=== PATIENT | female | born 1965 | race Caucasian/White ===

== ENCOUNTER 2018-02-04 21:02 | Inpatient (IN) | payer OTHER ==
[~2018-02-04] VITALS: Ht 172.7 cm; Wt 54.4 kg
[2018-02-04] MEDS ORDERED: INSULIN (21:38)
[2018-02-04 22:19] LABS: BASOPHILS ABSOLUTE AUTO 0.03 K/mm3 (0.00-0.23); BASOPHILS PERCENT AUTO 1 % (0-2); EOSINOPHILS ABSOLUTE AUTO 0.14 K/mm3 (0.00-0.68); EOSINOPHILS PERCENT AUTO 2 % (0-6); Hematocrit 29.7 % (33.0-51.0); IMMATURE GRAN ABSOLUTE AUTO 0.09 K/mm3 (0.00-0.10); IMMATURE GRAN PERCENT AUTO 2 % (0-1); LYMPHOCYTES ABSOLUTE AUTO 0.92 K/mm3 (0.84-5.20); LYMPHOCYTES PERCENT AUTO 15 % (21-46); MONOCYTES ABSOLUTE AUTO 0.71 K/mm3 (0.16-1.47); MONOCYTES PERCENT AUTO 12 % (4-13); Mean Corpuscular HGB 24.9 pg (26.0-34.0); Mean Corpuscular HGB Conc 30.3 g/dL (31.5-36.5); Mean Corpuscular Volume 82 fL (80-100); Mean Platelet Volume 10.6 fL (9.1-12.4); NEUTROPHILS ABSOLUTE AUTO 4.07 K/mm3 (1.96-9.15); NEUTROPHILS PERCENT AUTO 68 % (41-73); Platelet Count 180 K/mm3 (150-400); Red Blood Cell Count 3.62 M/mm3 (3.80-5.20); White Blood Cell Count 5.96 K/mm3 (4.00-11.30)
[2018-02-04 22:41] LABS: Alanine Aminotransfer (ALT/SGP 110 U/L (12-78); Albumin, Blood 2.5 g/dL (3.4-5.0); Albumin/Globulin Ratio 0.5 (0.8-1.8); Alk Phos 272 U/L (50-136); Anion Gap 11 mmol/L (6-16); Aspartate Aminotrans (AST/SGOT 206 U/L (12-37); Bilirubin, Total 0.5 mg/dL (0.1-1.0); Blood Urea Nitrogen 22 mg/dL (8-24); Bun/Creatinine Ratio 33.8 (12.0-20.0); CO2, Blood 23 mmol/L (21-32); Calcium, Blood 8.9 mg/dL (8.5-10.1); Chloride, Blood 109 mmol/L (98-108); Creatinine, Blood 0.65 mg/dL (0.40-1.00); Ethanol (Alcohol), Blood, Med <3 mg/dL; Glomerular Filtration Rate >60 (60-); Glucose, Blood 92 mg/dL (70-99); Salicylate <1.7 mg/dL (2.8-20.0); Sodium, Blood 143 mmol/L (136-145); Total Protein, Blood 7.5 g/dL (6.4-8.2)
[2018-02-04 22:49] LABS: Acetaminophen, Random <2.0 ug/mL (10.0-30.0)
[2018-02-04 22:58] LABS: Source, Urine Clean Catch
[2018-02-04 23:00] LABS: Bilirubin, Urine Neg (Neg); Blood, Urine 1+ (Neg); Glucose Qualitative, Urine 2+ (Neg); Ketones, Urine Neg (Neg); Leukocyte Esterase, Urine Neg (Neg); Nitrite, Urine Neg (Neg); Protein, Urine 3+ (Neg); Specific Gravity, Urine 1.025 (1.003-1.022); Urobilinogen, Urine NORM (Normal)
[2018-02-04 23:05] LABS: Appearance, Urine Clear (Clear); Color, Urine Yellow (P-Yellow)
[2018-02-04 23:06] LABS: Bacteria Mod /hpf; Red Blood Cells, Urine 0-2 /hpf (0-2); Squamous Epithelial Cells Mod /hpf (Few)
[2018-02-04 23:11] LABS: U Amphetamine Screen DETECTED; U Barbituate Screen Not Detected; U Benzodiazapine Screen Not Detected; U Buprenorphine Screen Not Detected; U Cannabinoids Screen Not Detected; U Cocaine Screen Not Detected; U Methadone Screen Not Detected; U Methamphetamine Screen Not Detected; U Opiates Screen Not Detected; U Oxycodone Screen Not Detected; U Phencyclidine Screen Not Detected; U Propoxyphene Screen Not Detected
[2018-02-05 00:15] LABS: Free Thyroxine 0.23 ng/dL (0.70-1.60)
[2018-02-05 00:36] LABS: Triiodothyronine, Free 0.62 pg/mL (2.18-3.98)
[2018-02-05 03:29] LABS: Hematocrit 32.5 % (33.0-51.0); Hemoglobin 9.8 g/dL (11.5-16.0); Mean Corpuscular HGB 24.6 pg (26.0-34.0); Mean Corpuscular HGB Conc 30.2 g/dL (31.5-36.5); Mean Corpuscular Volume 82 fL (80-100); Mean Platelet Volume 9.9 fL (9.1-12.4); Platelet Count 172 K/mm3 (150-400); RDW Coefficient Variation 22.9 % (11.7-14.2); RDW Standard Deviation 68.2 fL (35.1-46.3); Red Blood Cell Count 3.98 M/mm3 (3.80-5.20); White Blood Cell Count 7.96 K/mm3 (4.00-11.30)
[2018-02-05 03:58] LABS: Alanine Aminotransfer (ALT/SGP 113 U/L (12-78); Albumin, Blood 2.6 g/dL (3.4-5.0); Albumin/Globulin Ratio 0.5 (0.8-1.8); Alk Phos 282 U/L (50-136); Anion Gap 8 mmol/L (6-16); Aspartate Aminotrans (AST/SGOT 212 U/L (12-37); Bilirubin, Total 0.7 mg/dL (0.1-1.0); Blood Urea Nitrogen 19 mg/dL (8-24); Bun/Creatinine Ratio 35.4 (12.0-20.0); CO2, Blood 24 mmol/L (21-32); Calcium, Blood 8.8 mg/dL (8.5-10.1); Chloride, Blood 107 mmol/L (98-108); Creatinine, Blood 0.54 mg/dL (0.40-1.00); Globulin, Blood 5.2 g/dL (2.2-4.0); Glomerular Filtration Rate >60 (60-); Glucose, Blood 33 mg/dL (70-99); Sodium, Blood 139 mmol/L (136-145); Total Protein, Blood 7.8 g/dL (6.4-8.2)
[2018-02-07] MEDS ORDERED: NICO21TP TOP (16:24)
[2018-02-07] MEDS ORDERED: TRAZ100 PO (16:25)
[2018-02-07] MEDS ORDERED: TAMS.4ER PO (16:27)
[2018-02-07] MEDS ORDERED: LEVSOD125 PO (16:29)
[2018-02-07] MEDS ORDERED: FURO20 PO (16:30)
[2018-02-07] MEDS ORDERED: METO25 PO (16:30)
[2018-02-07] MEDS ORDERED: RISP.5 PO (16:31)
[2018-02-07] MEDS ORDERED: PROZAC20 MG PO (16:31)
[2018-02-07] MEDS ORDERED: INSULANPEN SC (16:34)
[2018-02-07] MEDS ORDERED: Humalog100 UNIT/3 SC (16:35)
[2018-02-07] MEDS ORDERED: RIFA550T2 PO (16:37)
[2018-02-07] MEDS ORDERED: Loperamide2 MG PO (16:38)
[2018-02-07] MEDS ORDERED: LORA1 PO (16:39)
[2018-02-07] MEDS ORDERED: OXYC5 PO (16:40)
[2018-02-07] MEDS ORDERED: CHOL10002 PO (16:43)
[2018-02-07] MEDS ORDERED: Ferrous Sulfat325 MG PO (16:43)
[2018-02-07] MEDS ORDERED: MAGOXI400 PO (16:44)
[2018-02-07] MEDS ORDERED: PROAIR RESPICL90 MCG INH (16:46)
[2018-02-07] MEDS ORDERED: GLUCOSE PO (16:49)
[2018-02-08 12:02] LABS: Free Thyroxine 0.76 ng/dL (0.70-1.60)
[2018-02-08 12:03] LABS: Anion Gap 9 mmol/L (6-16); Blood Urea Nitrogen 19 mg/dL (8-24); Bun/Creatinine Ratio 35.1 (12.0-20.0); CO2, Blood 25 mmol/L (21-32); Calcium, Blood 8.1 mg/dL (8.5-10.1); Chloride, Blood 97 mmol/L (98-108); Creatinine, Blood 0.54 mg/dL (0.40-1.00); Glomerular Filtration Rate >60 (60-); Glucose, Blood 498 mg/dL (70-99); Potassium, Blood 4.2 mmol/L (3.5-5.5); Sodium, Blood 131 mmol/L (136-145)
[2018-02-08] MEDS ORDERED: DEX4 GLUCOSE BIT1 GM (12:28)
[2018-02-08] MEDS ORDERED: INSDET100 SC (12:30)
[2018-02-08] MEDS ORDERED: QUET25 PO (12:31)
[2018-02-08] MEDS ORDERED: Seroquel25 MG PO (12:32)
[2018-02-08] MEDS ORDERED: Novolog Fl100 UNIT/1 (12:35)
== END 2018-02-08 14:45 | disposition home or self-care (01) | DRG 917 ==
LOC: ER 21:02 → ICUW 21:03 → EDBD 21:03 → MEDS 21:03 → ICUE 21:03 → MEDS 02-05 00:27 → ICUE 02-05 00:30 → MEDS 02-06 10:00 → ENPENDDIS 02-08 11:00 → MEDS 02-08 14:45
PROVIDERS: Emergency Medicine; Internal Medicine; Internal Medicine Endocrinology, Diabetes & Metabolism
DX: T38.3X1A Poisoning by insulin and oral hypoglycemic [antidiabetic] drugs, accidental (unintentional), initial encounter (principal); G93.41 Metabolic encephalopathy; F31.5 Bipolar disorder, current episode depressed, severe, with psychotic features; E10.649 Type 1 diabetes mellitus with hypoglycemia without coma; E03.8 Other specified hypothyroidism; E86.0 Dehydration; E87.6 Hypokalemia; F31.9 Bipolar disorder, unspecified; F29 Unspecified psychosis not due to a substance or known physiological condition; F41.9 Anxiety disorder, unspecified; I10 Essential (primary) hypertension; R45.1 Restlessness and agitation; F17.210 Nicotine dependence, cigarettes, uncomplicated; Z79.4 Long term (current) use of insulin; Z79.1 Long term (current) use of non-steroidal anti-inflammatories (NSAID)
CPT/HCPCS: 36415; 80048; 80053; 80400; 81001; 81025; 82140; 82533; 82607; 82728; 82746; 82947; 83036; 83540; 83550; 84439; 84443; 84481; 85025; 85027; 87077; 87081; 87086; 87186; 96361; 96374; 96375; 96376; 99285-25; G0480; J0834; J1610; J1650; J1720; J1815; J2060; J7030

== ENCOUNTER 2019-06-15 11:33 | Inpatient (IN) | payer OTHER ==
[~2019-06-15] VITALS: Ht 157.5 cm; Wt 46.3 kg
[~2019-06-15 11:33] MED LIST: CHOL10002 PO; DEX4 GLUCOSE BIT1 GM; FURO20 PO; Ferrous Sulfat325 MG PO; GLUCOSE PO; Humalog100 UNIT/3 SC; INSDET100 SC; INSULANPEN SC; INSULIN; LEVSOD125 PO; LORA1 PO; Loperamide2 MG PO; MAGOXI400 PO; METO25 PO; NICO21TP TOP; Novolog Fl100 UNIT/1; OXYC5 PO; PROAIR RESPICL90 MCG INH; PROZAC20 MG PO; QUET25 PO; RIFA550T2 PO; RISP.5 PO; Seroquel25 MG PO; TAMS.4ER PO; TRAZ100 PO
[2019-06-15 12:59] LABS: Source, Urine Clean Catch
[2019-06-15 13:01] LABS: Appearance, Urine Clear (Clear); Bilirubin, Urine Neg (Neg); Blood, Urine Neg (Neg); Color, Urine Yellow (P-Yellow); Glucose Qualitative, Urine 4+ (Neg); Ketones, Urine Neg (Neg); Leukocyte Esterase, Urine Neg (Neg); Nitrite, Urine Neg (Neg); Protein, Urine 2+ (Neg); Specific Gravity, Urine 1.005 (1.003-1.022); Urobilinogen, Urine NORM (Normal)
[2019-06-15 13:12] LABS: BASOPHILS ABSOLUTE AUTO 0.03 K/mm3 (0.00-0.23); BASOPHILS PERCENT AUTO 0 % (0-2); EOSINOPHILS ABSOLUTE AUTO 0.01 K/mm3 (0.00-0.68); EOSINOPHILS PERCENT AUTO 0 % (0-6); Hematocrit 36.6 % (33.0-51.0); IMMATURE GRAN ABSOLUTE AUTO 0.13 K/mm3 (0.00-0.10); IMMATURE GRAN PERCENT AUTO 1 % (0-1); LYMPHOCYTES ABSOLUTE AUTO 0.54 K/mm3 (0.84-5.20); LYMPHOCYTES PERCENT AUTO 6 % (21-46); MONOCYTES ABSOLUTE AUTO 0.81 K/mm3 (0.16-1.47); MONOCYTES PERCENT AUTO 9 % (4-13); Mean Corpuscular HGB 23.2 pg (26.0-34.0); Mean Corpuscular HGB Conc 30.1 g/dL (31.5-36.5); Mean Corpuscular Volume 77 fL (80-100); Mean Platelet Volume 10.4 fL (9.1-12.4); NEUTROPHILS ABSOLUTE AUTO 8.02 K/mm3 (1.96-9.15); NEUTROPHILS PERCENT AUTO 84 % (41-73); Platelet Count 190 K/mm3 (150-400); RDW Coefficient Variation 16.5 % (11.7-14.2); RDW Standard Deviation 46.6 fL (35.1-46.3); Red Blood Cell Count 4.75 M/mm3 (3.80-5.20); White Blood Cell Count 9.54 K/mm3 (4.00-11.30)
[2019-06-15 13:21] LABS: Bacteria Few /hpf; Red Blood Cells, Urine 0-2 /hpf (0-2); Squamous Epithelial Cells Rare /hpf (Few); White Blood Cells, Urine Not Seen /hpf (0-5)
[2019-06-15 13:38] LABS: Troponin I <0.015 ng/mL (0.000-0.040)
[2019-06-15 13:45] LABS: Calcium, Ionized (POC) 1.09 mmol/L (1.10-1.46); Chloride (POC) 80 mmol/L (98-108); Creatinine (POC) 0.6 mg/dL (0.6-1.0); Glucose (ISTAT POC) >700 mg/dL (70-99); Hemoglobin (POC) 12.6 g/dL (12.0-16.0); Sodium (POC) 114 mmol/L (135-148); Total CO2 (POC) 21 mmol/L (21-32)
[2019-06-15 14:11] LABS: Alanine Aminotransfer (ALT/SGP 81 U/L (12-78); Albumin, Blood 2.5 g/dL (3.4-5.0); Albumin/Globulin Ratio 0.4 (0.8-1.8); Alk Phos 380 U/L (50-136); Anion Gap 14 mmol/L (6-16); Aspartate Aminotrans (AST/SGOT 76 U/L (12-37); Beta-hydroxybutyrate 1.5 mg/dL (0.2-2.8); Bilirubin, Total 0.6 mg/dL (0.1-1.0); Blood Urea Nitrogen 19 mg/dL (8-24); Bun/Creatinine Ratio 28.3 (12.0-20.0); CO2, Blood 21 mmol/L (21-32); Calcium, Blood 9.2 mg/dL (8.5-10.1); Chloride, Blood 74 mmol/L (98-108); Creatinine, Blood 0.67 mg/dL (0.40-1.00); Globulin, Blood 6.7 g/dL (2.2-4.0); Glomerular Filtration Rate >60 (60-); Glucose, Blood 1143 mg/dL (70-99); Potassium, Blood 4.1 mmol/L (3.5-5.5); Sodium, Blood 109 mmol/L (136-145); Total Protein, Blood 9.2 g/dL (6.4-8.2)
[2019-06-15] MEDS ORDERED: MIRT30ST PO (15:00)
[2019-06-15] MEDS ORDERED: GABA300 PO (15:01)
[2019-06-15] MEDS ORDERED: FURO20 PO (15:01)
[2019-06-15] MEDS ORDERED: QUET25 PO ×2 (15:01→15:02)
[2019-06-15] MEDS ORDERED: TRAZ100 PO (15:02)
[2019-06-15] MEDS ORDERED: Aldactone100 MG PO (15:02)
[2019-06-15] MEDS ORDERED: OXYC5 PO (15:03)
[2019-06-15] MEDS ORDERED: BASAGLAR K100 UNIT/1 SC (15:04)
[2019-06-15] MEDS ORDERED: ADMELOG100 UNIT/1 SC (15:05)
[2019-06-15] MEDS ORDERED: ALBU90OI INH (15:06)
[2019-06-15 15:23] LABS: Ethanol (Alcohol), Blood, Med <3 mg/dL; Phosphorus, Blood 4.2 mg/dL (2.5-4.9)
[2019-06-15 15:53] LABS: U Amphetamine Screen Not Detected; U Barbituate Screen Not Detected; U Benzodiazapine Screen Not Detected; U Buprenorphine Screen Not Detected; U Cannabinoids Screen Not Detected; U Cocaine Screen Not Detected; U Methadone Screen Not Detected; U Methamphetamine Screen Not Detected; U Opiates Screen Not Detected; U Oxycodone Screen Not Detected; U Phencyclidine Screen Not Detected; U Propoxyphene Screen Not Detected
--- NOTE | 2019-06-15 17:00 | NUR ---
INITIAL ASSESMENT PT ARRIVED FROM ED VIA STRETCHER WITH INSULIN QTT, TELE AND IVF. PT AMBULATED OFF STRETCHER TO COMMODE AND VOIDED W/O DIFF, THEN AMBULATED TO BED WITH STANDBY ASSIST. PT ANXIOUS, CUSSING AT STAFF AT TIMES AND DEMANDING. VSS, LAB TO DRAW CS THEY ARE ABOVE 500, TITRATE APROP, PALP PULSES T/O, AFEBRILE. RA, CLAER AND DIM BILAT. NPO AT THIS TIME. ABD FLAT AND NON TENDER WITH BT T/O. PT VERY HUNGRY. SCATTERED HEALED SCABS T/O. WILL CONT TO MONITOR
[2019-06-15 18:09] LABS: Anion Gap 8 mmol/L (6-16); Blood Urea Nitrogen 14 mg/dL (8-24); Bun/Creatinine Ratio 27.7 (12.0-20.0); CO2, Blood 22 mmol/L (21-32); Calcium, Blood 8.5 mg/dL (8.5-10.1); Chloride, Blood 91 mmol/L (98-108); Creatinine, Blood 0.51 mg/dL (0.40-1.00); Glomerular Filtration Rate >60 (60-); Glucose, Blood 543 mg/dL (70-99); Potassium, Blood 3.4 mmol/L (3.5-5.5)
[2019-06-15 18:12] LABS: Sodium, Blood 121 mmol/L (136-145)
[2019-06-15 18:28] LABS: Glucose, Blood 470 mg/dL (70-99)
[2019-06-15 20:01] LABS: Anion Gap 11 mmol/L (6-16); Blood Urea Nitrogen 13 mg/dL (8-24); Bun/Creatinine Ratio 28.3 (12.0-20.0); CO2, Blood 17 mmol/L (21-32); Chloride, Blood 97 mmol/L (98-108); Creatinine, Blood 0.46 mg/dL (0.40-1.00); Glomerular Filtration Rate >60 (60-); Glucose, Blood 412 mg/dL (70-99); Potassium, Blood 3.6 mmol/L (3.5-5.5); Sodium, Blood 125 mmol/L (136-145)
--- NOTE | 2019-06-15 20:15 | NUR ---
ASSUMPTION OF CARE PATIENT'S VITALS ARE STABLE. NSR WTIH RATE IN THE 90S. SATTING 100% ON ROOM AIR. INSULIN AT 4.5 UNITS/HR AT START OF SHIFT, DROPPED TO 3.5 UNITS AND THEN 3 UNITS DUE TO DECREASING BLOOD SUGAR LEVELS. . ON 200ML/HR NS DRIP. IV IN RIGHT FOREARM AND LEFT WRIST, BOTH PATENT WITH DRESSINGS C/D/I. PATIENT AMBULATING SELF TO COMMODE, TOLERATED WELL. CHECKING GLUCOSE HOURLY, WAITING FOR LEVEL TO DROP TO AROUND 250 SO WE CAN GET HER ON LONG ACTING INSULIN, AND GET HER A DIET ORDER - PATIENT HAS BEEN COMPLAINING ABOUT BEING VERY HUNGRY. PT COMPLAINED OF STOMACH PAIN LEVEL OF 8. OXYCODONE 5MG GIVEN. POTASSIUM AT 3.6 FROM 3.4 WILL CONTINUE TO MONITOR. MARKEL BRINK SN
[2019-06-16 03:57] LABS: Hematocrit 27.1 % (33.0-51.0); Hemoglobin 8.7 g/dL (11.5-16.0); Mean Corpuscular HGB 23.9 pg (26.0-34.0); Mean Corpuscular HGB Conc 32.1 g/dL (31.5-36.5); Mean Corpuscular Volume 75 fL (80-100); Mean Platelet Volume 10.3 fL (9.1-12.4); Platelet Count 119 K/mm3 (150-400); RDW Coefficient Variation 15.9 % (11.7-14.2); RDW Standard Deviation 43.6 fL (35.1-46.3); Red Blood Cell Count 3.64 M/mm3 (3.80-5.20); White Blood Cell Count 7.57 K/mm3 (4.00-11.30)
[2019-06-16 04:31] LABS: Alanine Aminotransfer (ALT/SGP 64 U/L (12-78); Albumin, Blood 1.9 g/dL (3.4-5.0); Albumin/Globulin Ratio 0.4 (0.8-1.8); Alk Phos 272 U/L (50-136); Anion Gap 8 mmol/L (6-16); Aspartate Aminotrans (AST/SGOT 76 U/L (12-37); Bilirubin, Total 0.3 mg/dL (0.1-1.0); Blood Urea Nitrogen 12 mg/dL (8-24); CO2, Blood 23 mmol/L (21-32); Chloride, Blood 98 mmol/L (98-108); Creatinine, Blood 0.63 mg/dL (0.40-1.00); Glomerular Filtration Rate >60 (60-); Glucose, Blood 395 mg/dL (70-99); Potassium, Blood 3.7 mmol/L (3.5-5.5); Sodium, Blood 129 mmol/L (136-145)
[2019-06-16 04:36] LABS: Total Protein, Blood 6.9 g/dL (6.4-8.2)
--- NOTE | 2019-06-16 05:47 | NUR ---
WHEN ASSUMING SHIFT, PATIENT WAS PLEASANT AND CALM. AT APPROX. 2300 SHE BEGAN TO ACT VERY AGITATED, WOULD YELL, SCREAM, USE PROFANITY, THROW OBJECTS. PREVIOUS BEHAVIOR GRADUALLY INCREASED IN SEVERITY THROUGHOUT SHIFT. PRN ATIVAN GIVEN @ 0148 WITH LITTLE TO NO EFFECT. PRN SEROQUEL ALSO GIVEN WITH LITTLE TO NO EFFECT. DR ROWE THEN CONTACTED AND RECEIVED ORDER FOR ONE TIME DOSE OF IV ATIVAN 0.5MG, THIS ALSO HAD LITTLE TO NO EFFECT. PATIENT THEN BEGAN TO ATTEMPT TO CLIMB OUT OF BED AND WAS VERY UNSTEADY ON HER FEET. WAS CONCERNED FOR FALL/INJURY. VANESSA VEST APPLIED AND DR ROWE CONTACTED AGAIN. RECEIVED ORDER FOR 2.5MG IV HALDOL, BEHAVIORS APPEAR TO BE DECREASING AT THIS TIME. LESS CALLING OUT, APPEARS TO BE SLEEPING MORE OFTEN, ALTHOUGH SHE CONTINUES TO ROUSE AND ATTEMPT TO GET OUT OF BED AT TIMES. INSULIN DRIPS PLACED ON STANDBY @ APPROX 2300. 40 UNITS OF SUBQ LANTUS GIVEN PER ELISHA COLLEGE DEAN. BLOOD SUGARS CHECKED AGAIN AT 0100, BLOOD SUGAR INCREASED 215 TO 287, RECEIVED ORDER PER ELISHA COLLEGE DEAN FOR ONE TIME DOSE OF LOW SLIDING SCALE HUMALOG. PT TOLERATED PO FOOD AND DRINKS WITHOUT DIFFICULTY, ALTHOUGH SHE WOULD FREQUENTLY ASK FOR MORE DRINK AND FOOD. MORNING LABS SHOWED BLOOD SUGAR OF 395. RECEIVED ORDER FOR DR ROWE FOR MEDIUM SLIDING SCALE HUMALOG. MARKEL BRINK SN
--- NOTE | 2019-06-16 07:22 | NUR ---
ASSUMED CARE: PT AWOKE AND STARTED HOLLERING OUT FOR FOOD. EXPLAINED THAT BREAKFAST WILL BE COMING SOON. VANESSA VEST IN PLACE. NSR ON TELE
--- NOTE | 2019-06-16 08:35 | NUR ---
PT WITH VEST RESTRAINTS UNTIED SINCE 749. SHE HAS REMAINED IN BED, STILL CALLS OUT AT TIMES. COOPERATIVE WITH MEDS. RESTING AT THIS TIME.
--- NOTE | 2019-06-16 09:28 | NUR ---
PT CLIMBED OVER ARM RAIL TO GET OUT OF BED. VANESSA VEST REAPPLIED. PT RESTING AT THIS TIME.
[2019-06-16 11:00] LABS: C-REACTIVE PROTEIN, EXT RANGE 0.64 mg/dL (0.000-0.300)
--- NOTE | 2019-06-16 11:00 | NUR ---
DR HEATH CAME TO SEE PT. WITNESSED PT'S YELLING AND AGITATION SPELLS. AWARE THAT PT STILL IN VANESSA AND FAILED ATTEMPT TO TAKE OUT OF VANESSA VEST. CARE MANAGEMENT ALSO AWARE OF PT SITUATION
--- NOTE | 2019-06-16 12:48 | NUR ---
PT'S SISTER HERE TO SEE PT. DISCUSSED SITUATION WITH HER AND SHE STATES THAT THESE PERIODS OF AGITATION ARE NOT NEW AND THAT THIS IS WHY SHE WAS KICKED OUT OF THE FACILITY SHE WAS IN [place]. CARE MANAGEMENT AWARE AND STATES SHE WILL BE BY TO SEE SISTER IN ABOUT AN HOUR. CALL TO DR HEATH TO UPDATE ON LABS AND INFO FROM SISTER. AWARE THAT ZYPREXA AND HALDOL HAS NOT SEEMED TO BE SUCCESSFUL IN THAT PT STILL HAS MOMENTS OF AGITATION FOLLOWED BY PERIODS OF CALM. DR PRICE WILL REVIEW, NO CHANGES AT THIS TIME.
--- NOTE | 2019-06-16 16:18 | NUR ---
CALL TO DR HEATH REGARDING PT'S CBG AND REQUEST FOR NICOTINE PATCH. SEE ORDERS FOR NICOTINE PATCH AND ORDERS TO KEEP SS AT SAME ORDER AT THIS TIME.
--- NOTE | 2019-06-16 17:22 | NUR ---
REPORT CALLED TO NURSE FOR 345. NURSE AWARE THAT PT IS IN VANESSA VEST AND HAS PERIODS OF AGITATION VS RESTING. APPEARS THAT GIVING HER SPACE WHEN SHE GETS AGITATED IS WHAT WORKS BEST. MESSAGE LEFT WITH PT'S SISTER TO CALL BACK FOR ROOM NUMBER. ELECTRONIC PAGINATION SYSTEM OPERATOR AWARE
--- NOTE | 2019-06-16 17:54 | NUR ---
PT ARRIVED TO ROOM FROM ICU VIA W/C. SHE WAS A STAND BY ASSIST TO THE BED. ALL HER BELONGINGS ARRIVED WITH HER. SHE IS ON DROPLET PRECAUTIONS PER REPORT. PT REMIANS IN A VANESSA FOR SAFETY. SHE IS MILDLY AGGITATED AND STATES SHE IS HUNGRY AND WANTS THE TV ON. SHE HAS FOOD AT THE BEDSIDE AND DID EAT DINNER BEFORE HER TRANSFER. SHE WAS ASSISTED WITH THE TV AND THE HEAT ADJUSTED IN THE ROOM PER HER REQUEST. BED ALARM IS SET FOR SAFETY. PT IS RESTING IN BED WITH HER CALL LIGHT IN REACH.
[2019-06-16 22:06] LABS: Glucose, Blood 605 mg/dL (70-99)
[2019-06-16 23:03] LABS: Source, Urine Clean Catch
[2019-06-16 23:13] LABS: Bilirubin, Urine Neg (Neg); Blood, Urine 1+ (Neg); Glucose Qualitative, Urine 4+ (Neg); Ketones, Urine Neg (Neg); Leukocyte Esterase, Urine Neg (Neg); Nitrite, Urine Neg (Neg); Protein, Urine 3+ (Neg); Urobilinogen, Urine NORM (Normal)
[2019-06-16 23:25] LABS: Appearance, Urine Hazy (Clear); Color, Urine Yellow (P-Yellow)
[2019-06-16 23:27] LABS: Bacteria Many /hpf; Squamous Epithelial Cells Mod /hpf (Few); White Blood Cells, Urine 0-2 /hpf (0-5)
[2019-06-16 23:39] LABS: U Amphetamine Screen Not Detected; U Barbituate Screen Not Detected; U Benzodiazapine Screen DETECTED; U Buprenorphine Screen Not Detected; U Cannabinoids Screen Not Detected; U Cocaine Screen Not Detected; U Methadone Screen Not Detected; U Methamphetamine Screen Not Detected; U Opiates Screen Not Detected; U Oxycodone Screen Not Detected; U Phencyclidine Screen Not Detected; U Propoxyphene Screen Not Detected
--- NOTE | 2019-06-17 00:23 | NUR ---
MD CONTACT: CRITICAL HIGH BLOOD GLUCOSE. CBG MONITOR READ HIGH AT 2114, STAT LAB COMPLETED AT 2136 AND CONFIRMED BLOOD GLUCOSE OF 605. ANSWERING SERVICE NOTIFIED AT ABOUT 2210. NEW ORDERS RECIEVED TO ADMINISTER 1 L OF LR WIDE OPEN, ADMINISTER DOSE OF HUMALOG PER HIGH SLIDING SCALE. RECHECK BLOOD GLUCOSE IN 1 HR AND CALL ANSWERING SERVICE WITH RESULT.
--- NOTE | 2019-06-17 00:30 | NUR ---
MD CONTACT: CALL TO ANSWERING SERVICE. ABOUT 500MLS OF LR COMPLETED. HUMALOG INSULIN ADMINISTERED ORDERED. CBG RECHECKED, 455. NOTIFIED ANSWERING SERVICE MD. ORDERS RECEIVED TO KEEP PT NPO UNTIL FURTHER NOTICE. COMPLETE CURRENT BAG OF LR. RECHECK CBG WHEN BAG COMPLETELY INFUSED. CALL ANSWERING SERVICE WITH RESULTS.
[2019-06-17 00:45] LABS: Campylobacter Sp Not Detected (NOT DETECT)
[2019-06-17 00:46] LABS: Adenovirus F 40/41 Not Detected (NOT DETECT); Astrovirus Not Detected (NOT DETECT); Cryptosporidium Not Detected (NOT DETECT); Cyclospora Cayetanensis Not Detected (NOT DETECT); E. Coli O157 Not Detected (NOT DETECT); Entamoeba Histolytica Not Detected (NOT DETECT); Enteroaggregative E. coli-EAEC Not Detected (NOT DETECT); Enteropathogenic E. coli-EPEC Detected (NOT DETECT); Enterotoxigenic E. coli-ETEC Not Detected (NOT DETECT); Giardia Lamblia Not Detected (NOT DETECT); Norovirus GI/GII Not Detected (NOT DETECT); Plesiomonas Shigelloides Not Detected (NOT DETECT); Rotavirus A Not Detected (NOT DETECT); Salmonella Sp Not Detected (NOT DETECT); Sapovirus Not Detected (NOT DETECT); Shiga Toxin-prod E. coli-STEC Not Detected (NOT DETECT); Shigella/Enteroin E. coli-EIEC Not Detected (NOT DETECT); Vibrio Cholerae Not Detected (NOT DETECT); Vibrio Sp Not Detected (NOT DETECT); Yersinia Enterocolitica Not Detected (NOT DETECT)
--- NOTE | 2019-06-17 05:01 | NUR ---
MD CONTACT: CALL PLACED TO ANSWERING SERVICE AT 0100. 1L LR INFUSED AND CBG RECHECKED- 381. PHYSICIAN ON-CALL ORDERED PT CONTINUE TO BE NPO UNTIL BREAKFAST. CHANGE SS INSULIN FROM MEDIUM TO HIGH AC&HS. ADMINISTER NS IV @ 100MLS/HR. WILL CONTINUE TO MONITOR PT CLOSELY.
--- NOTE | 2019-06-17 05:06 | NUR ---
SHIFT SUMMARY: PT A/O TO PERSON AND PLACE. MAKING NEEDS KNOWN BUT COMPULSIVELY GETS UP AND ATTEMPTS SELF T/F IMMEDIATELY AFTER CALLING FOR ASSIST, GIVING STAFF NO TIME TO DON PPE AND HELP BEFORE YELLING AND BECOMING AGITATED ABOUT FAILED ATTEMPT TO SELF T/F. DURING T/F BECOMES EASILY TWISTED UP IN VANESSA VEST STRAPS, IV LINES, AND BEDDING. UNSTEADY ON HER FEET AND BEGINS TO LOSE BALANCE IF LOOKING AROUND THE ROOM. DENIES NEED FOR ASSISTANCE AND INSISTS SHE IS SAFE TO T/F SELF BUT SO FAR HAS DEMONSTRATED POOR SAFETY AWARENESS. FREQUENT VOIDS AND FORMED BMS THROUGH THE NIGHT. URINE AND STOOL SAMPLE TO LAB. TEMP 100.3 TONIGHT, ROOM TEMP DECREASED. SLEPT MINIMALLY THROUGH THE NIGHT. SEEMED A LITTLE LESS RESTLESS AFTER MELATONIN ADMINSTERED. DOESN'T FEEL TYLENOL IS SUFFICIENT FOR PAIN MANAGEMENT- REPORTS CHRONIC LOW BACK AND LEG PAIN. NEURONTIN RESTARTED PER MD ORDER. HALDOL ADMINISTERED X 1 TONIGHT FOR AGITATION WITH LITTLE IMPROVEMENT. VANESSA VEST ON AND Q2 HR ASSESSMENTS COMPLETED. BED LOW, CALL BUTTON IN REACH, ALARM ON.
[2019-06-17 05:14] LABS: BASOPHILS ABSOLUTE AUTO 0.04 K/mm3 (0.00-0.23); BASOPHILS PERCENT AUTO 0 % (0-2); EOSINOPHILS ABSOLUTE AUTO 0.12 K/mm3 (0.00-0.68); EOSINOPHILS PERCENT AUTO 1 % (0-6); Hematocrit 31.5 % (33.0-51.0); Hemoglobin 9.9 g/dL (11.5-16.0); IMMATURE GRAN ABSOLUTE AUTO 0.16 K/mm3 (0.00-0.10); IMMATURE GRAN PERCENT AUTO 2 % (0-1); LYMPHOCYTES ABSOLUTE AUTO 0.86 K/mm3 (0.84-5.20); LYMPHOCYTES PERCENT AUTO 9 % (21-46); MONOCYTES ABSOLUTE AUTO 1.04 K/mm3 (0.16-1.47); MONOCYTES PERCENT AUTO 11 % (4-13); Mean Corpuscular HGB 23.1 pg (26.0-34.0); Mean Corpuscular HGB Conc 31.4 g/dL (31.5-36.5); Mean Corpuscular Volume 74 fL (80-100); Mean Platelet Volume 10.1 fL (9.1-12.4); NEUTROPHILS ABSOLUTE AUTO 7.57 K/mm3 (1.96-9.15); NEUTROPHILS PERCENT AUTO 77 % (41-73); Platelet Count 148 K/mm3 (150-400); RDW Coefficient Variation 16.9 % (11.7-14.2); RDW Standard Deviation 44.9 fL (35.1-46.3); Red Blood Cell Count 4.28 M/mm3 (3.80-5.20); White Blood Cell Count 9.79 K/mm3 (4.00-11.30)
[2019-06-17 05:41] LABS: Alanine Aminotransfer (ALT/SGP 69 U/L (12-78); Albumin/Globulin Ratio 0.4 (0.8-1.8); Alk Phos 280 U/L (50-136); Anion Gap 7 mmol/L (6-16); Aspartate Aminotrans (AST/SGOT 92 U/L (12-37); Bilirubin, Total 0.3 mg/dL (0.1-1.0); Blood Urea Nitrogen 14 mg/dL (8-24); Bun/Creatinine Ratio 26.9 (12.0-20.0); CO2, Blood 21 mmol/L (21-32); Calcium, Blood 8.6 mg/dL (8.5-10.1); Chloride, Blood 103 mmol/L (98-108); Creatinine, Blood 0.52 mg/dL (0.40-1.00); Globulin, Blood 5.4 g/dL (2.2-4.0); Glomerular Filtration Rate >60 (60-); Glucose, Blood 317 mg/dL (70-99); Potassium, Blood 3.8 mmol/L (3.5-5.5); Sodium, Blood 131 mmol/L (136-145); Total Protein, Blood 7.4 g/dL (6.4-8.2)
--- NOTE | 2019-06-17 07:06 | NUR ---
FALL: BED ALARM SOUNDING AT 0620. SECTION HOUSEKEEPER ANSWERED ALARM AND CALLED FOR THIS NURSE. THIS NURSE ENTERED ROOM AND FOUND PT KNEELING BESIDE BED. UNSURE ABOUT HOW SHE SLID OUT OF BED BUT STATES THAT SHE WAS ATTEMPTING TO GET UP TO USE THE BATHROOM. NON-SKID SOCKS ON. BED LOW, ALARM ON. SIDE RAILS UP X 2. CALL BUTTON ON BED BESIDE PILLOW. PT ANXIOUS. STATES KNEES HURT. 2 STAFF ASSISTED PT TO STAND USING A GAIT BELT. ONCE HER FEET WERE UNDER HER SHE WAS ABLE TO PIVOT AND SIT ON THE EDGE OF BED. ROM CHECKED IN KNEES AND HIPS. NO INCREASED PAIN WITH MOVEMENT. NO SWELLING OR DEFORMITY OF JOINTS. KNEES APPEAR SLIGHTLY RED OVER PATELLA BILATERALLY. SKIN ASSESSED UNDER WHERE GAIT BELT WAS USED- INTACT, NO DISCOLORATION. VSS CHECKED AND STABLE. NOTIFIED. POST FALL ASSESSMENT COMPLETED. ASSISTED TO BATHROOM AND BACK TO BED WITH 1 SBA AND 4WW. PT SHOOK UP AND KNEES ARE SORE BUT OTHERWISE IS DOING WELL AND DENYING PAIN. CURRENTLY RESTING COMFORTABLY IN BED, BED ALARM ON, BED LOW. CALL BUTTON IN REACH.
--- NOTE | 2019-06-17 08:34 | NUR ---
PATIENT WOULD NOT EAT HER BREKFAST THIS MORNING AND WAS VERY AGIGATED AND UPSET AT WHAT WE HAVE HER, SHE WAS THROWING HER FOOD AND YELLING AT US, I LET HER KNOW THAT I DID ORDER HER SOMETHING ELSE LIKE EGGS THAT SHE WANTED BUT SHE WS NOT HAPPY. RN NOTIFIED.
--- NOTE | 2019-06-17 08:34 | NUR ---
THIS NURSE ENTERED PT ROOM WITH BREAKFAST TRAY AND MORNING MEDS. PT STATED SHE WAS NOT TAKING ANY MEDS OR INSULIN AND SHE DID NOT CARE IF HER CBGS WERE HIGH. PT STATES SHE WILL NOT COOPERATE UNTIL SHE IS LET OUT OF THE VANESSA VEST. PT IS YELLING AND VERY AGITATED. PT PICKED UP FOOD ON HER TRAY AND THREW IT. PT WAS EDUCATED ON THE IMPORTANCE OF TAKING HER INSULIN AND SHE CONTINUED TO REFUSE. PT WAS OFFERED DRINKS ALONG WITH HER BREAKFAST AND SHE REFUSED THEM WELL. SAW FILER ORDERED AN ALTERNATIVE BREAKFAST TRAY AND WE WILL REAPPROACH AFTER A WHILE. PT CONTINUES TO HAVE POOR SAFETY AWARENESS AND TO BE VERY IMPULSIVE AND LABILE. CHARGE NURSE WAS NOTIFIED. PT IS VISIBLE ON REMOTE MONITOR.
--- NOTE | 2019-06-17 11:25 | NUR ---
dr cummins came to see pt at bedside. PT CONTINUES TO REQUEST TO HAVE VANESSA TAKEN OFF. PT AGREES TO TAKE HER MEDS AND INSULIN AND EAT HER FOOD AND USE THE CALL LIGHT BEFORE GETTING UP OUT OF BED. VANESSA WAS REMOVED AND PT WAS ASSISTED TO THE BSC. PT TOOK ALL HER MORNING MEDS THAT SHE HAD PREVIOUSLY REFUSED. SHE ALSO AGREED TO HER INSULIN AND IS EATING A SNACK. HER SISTER AND FRIEND ARE NOW AT BEDSIDE.
[2019-06-17 11:53] LABS: Percent Saturation 5.7 % (15.0-50.0)
--- NOTE | 2019-06-17 15:54 | NUR ---
SHIFT SUMMARY: PT HAS BEEN A/O X 4 BUT VERY IMPULSIVE AND AGITATED AT TIMES AND C/O CHRONIC GENERALIZED PAIN. SHE HAS BEEN USING CALL LIGHT FOR HELP WHEN NEEDED. SHE HAS REMAINED OUT OF THE VANESSA SINCE IT WAS REMOVED BUT THE BED ALARM REMAINS ON. SHE REFUSED HER MORNING MEDS AND AFTER THE DOCTOR CAME TO SEE HER SAID SHE WOULD AGREE TO TAKE THEM AND HAS BEEN COMPLIANT EVER SINCE HIS VISIT. SHE HAS BEEN EATING HER MEALS IN ADDITION TO SNACKS IN BETWEEN. DIABETIC EDUCATION HAS BEEN COMPLETED WITH HER BUT SHE IS NOT INTERESTED IN LEARNING ABOUT DIABETIC FOOD CHOICES. DR HEATH INCREASED HER ZYPREXA FREQUENCY TODAY AND NO ADVERSE REACTIONS HAVE BEEN OBSERVED SO FAR. HER CBGS REMAIN ELEVATED AND COVERED WITH SLIDING SCALE + 4 UNITS. SHE IS ASYMPTOMATIC OF HYPER/HYPO GLYCEMIA. SHE IS A STAND BY ASSIST TO THE BSC AND IS CONT AND INCT AT TIMES. SHE IS RESTING IN BED WITH HER CALL LIGHT IN REACH.
[2019-06-17 16:53] LABS: Glucose, Blood 539 mg/dL (70-99)
--- NOTE | 2019-06-17 17:12 | NUR ---
PT CBG WAS ELEVATED AND A STAT BLOOD DRAW WAS COMPLETED. DR HEATH AND CHARGE NURSE WERE NOTIFIED AND UPON RESULTS INSULIN WAS GIVEN ORDERED. PT REMAINS ASYMPTOMATIC OF HYPER GLYCEMIA. WHILE ADMINISTERING INSULIN IT WAS NOTED THAT PT ABDOMEN WAS SIGNIFICANYLY DISTENDED SINCE THIS MORNING. PT STATED THAT SHE HAS HAD TO HAVE A PARACENTESIS IN THE PAST TO DRAIN FLUID OFF. DR HEATH WAS NOTIFIED AND GAVE VERBAL ORDERS TO OBTAIN AN ABDOMINAL ULTRASOUND.
--- NOTE | 2019-06-17 23:07 | NUR ---
MD CONTACT AT 2029: HS CBG 454, LANTUS ADMINISTERED ORDERED. ANSWERING SERVICE PHYSICIAN INSTRUCTED ONE TIME USE OF HIGH SS FOR ELEVATED CBG. 18UN HUMALOG ADMINISTERED PER SS. CBG RECHECKED AT 2229 382.
--- NOTE | 2019-06-18 00:47 | NUR ---
MD CONTACT: PT'S BPS AND PULSE HAVE BEEN ELEVATED. CONTACTED DR. ROWE AT 6620. INFORMED HER OF AGITATION DURING BP CHECKS WELL DEVELOPING ASCITES IN ABDOMEN. MD ORDERED PRN HYDRALAZINE FOR SBP >160. BP RECHECKED PRIOR TO ADMINISTRATION OF HYDRALAZINE- 154/95. MED NOT GIVEN AT THIS TIME.
[2019-06-18 04:25] LABS: BASOPHILS ABSOLUTE AUTO 0.04 K/mm3 (0.00-0.23); BASOPHILS PERCENT AUTO 0 % (0-2); EOSINOPHILS ABSOLUTE AUTO 0.09 K/mm3 (0.00-0.68); EOSINOPHILS PERCENT AUTO 1 % (0-6); Hematocrit 31.6 % (33.0-51.0); Hemoglobin 9.8 g/dL (11.5-16.0); IMMATURE GRAN ABSOLUTE AUTO 0.25 K/mm3 (0.00-0.10); IMMATURE GRAN PERCENT AUTO 2 % (0-1); LYMPHOCYTES ABSOLUTE AUTO 1.07 K/mm3 (0.84-5.20); LYMPHOCYTES PERCENT AUTO 9 % (21-46); MONOCYTES PERCENT AUTO 9 % (4-13); Mean Corpuscular HGB 22.7 pg (26.0-34.0); Mean Corpuscular Volume 73 fL (80-100); Mean Platelet Volume 9.5 fL (9.1-12.4); NEUTROPHILS ABSOLUTE AUTO 9.66 K/mm3 (1.96-9.15); NEUTROPHILS PERCENT AUTO 79 % (41-73); Platelet Count 134 K/mm3 (150-400); RDW Coefficient Variation 17.3 % (11.7-14.2); RDW Standard Deviation 46.2 fL (35.1-46.3); Red Blood Cell Count 4.31 M/mm3 (3.80-5.20); White Blood Cell Count 12.21 K/mm3 (4.00-11.30)
[2019-06-18 04:46] LABS: Anion Gap 7 mmol/L (6-16); Blood Urea Nitrogen 16 mg/dL (8-24); Bun/Creatinine Ratio 28.1 (12.0-20.0); CO2, Blood 21 mmol/L (21-32); Calcium, Blood 8.9 mg/dL (8.5-10.1); Chloride, Blood 102 mmol/L (98-108); Creatinine, Blood 0.57 mg/dL (0.40-1.00); Glomerular Filtration Rate >60 (60-); Glucose, Blood 330 mg/dL (70-99); Sodium, Blood 130 mmol/L (136-145)
--- NOTE | 2019-06-18 05:48 | NUR ---
SHIFT SUMMARY: ALERT AND ORIENTED X3. MAKING NEEDS KNOWN, ALTHOUGH URGENTLY AND BEGINS YELLING AND THREATENING TO SELF T/F SOON SHE PRESSES THE CALL BUTTON BEFORE STAFF HAS TIME TO RESPOND. SHE DOES WAIT HOWEVER. BECAME AGITATED EARLY TONIGHT WHEN SHE WAS TOLD SHE CAN'T GO OUTSIDE TO SMOKE. NICOTINE PATCH IS ON. BEGAN THREATENING TO LEAVE YELLING, "NO ONE IS GOING TO STOP ME". FACILITY SMOKING RULES EXPLAINED TO PT AND SPACE GIVEN. PT CALMED DOWN AFTER ABOUT 5 MIN AND DROPPED THE ISSUE. SHE HAS BEEN AWAKE MOST OF THE NIGHT DESPITE TAKING MELATONIN. VERY NEEDY- MAKING MANY FREQUENT REQUESTS FOR SMALL THINGS FROM STAFF. ENCOURAGED TO CONSOLIDATE HER NEEDS BUT PT HAS SO FAR BEEN UNABLE OR UNWILLING TO DO SO. PT C/O L HIP SORENESS TONIGHT. NO VISIBLE ABNORMALITIES WITH HIP, SKIN INTACT, NO SWELLING OR BRUISING, ROM APPEARS WNL. ACCEPTED TYL X2 AND HEATING PAD FOR L HIP PAIN. NO FURTHER COMPLAINTS OF PAIN SINCE. ABDOMEN LARGE, ROUND, DISTENDED, FIRM, TENDER. PT REFUSED TO ALLOW ABD GIRTH MEASUREMENT. DENIES SOB AT THIS TIME. LOST BALANCE DURING T/F X 1 TONIGHT BUT WAS STABILIZED EASILY. CALL BUTTON IN REACH, BED LOW, BED ALARM ON.
--- NOTE | 2019-06-18 11:30 | NUR ---
APPROX 11:00 DR QUINTANA CAME TO SEE PT. PT IS REQUESTING TO GO OUT AND SMOKE AND AT THIS TIME THE DOCTOR AGREES WITH NURSING THAT IT IS NOT SAFE. AFTER THE DOCTOR LEFT THE PT STARTED SLAMMING HER PHONE ON THE TABLE AND YELLING ABOUT HER PHONE NOT WORKING. SHE WAS DEMANDING TO GO OUTSIDE AND SMOKE AND SAID THAT SHE WAS GOING TO LEAVE TO SMOKE. THIS NURSE AND TOP TAPER MACHINE CALMLY ASKED THE PT TO NOT YELL OR THROW THINGS IN HER ROOM. THE PT GOT UP OUT OF BED AND STARTED YELLING THAT SHE WAS GOING TO LEAVE, CUSSING AND SCREAMING THAT THIS WAS NOT WHAT SHE WAS GOING TO DO. PT TOOK ALL OF HER BELONGINGS OUT OF THE CLOSET AND THREW THEM ALL OVER THE ROOM. THE PT CONTINUED TO ESCALATE. CHARGE NURSE WAS CALLED. SECURITY WAS CALLED AT APPROX 11:10. SEVERAL NURSES CAME TO ASSIST AND MULTIPLE ATTEMPTS WERE MADE TO DE-ESCALATE THE PT BEHAVIOR. SHE CONTINUED TO PACE AND YELL ABOUT WANTING TO USE HER PHONE FORE LONG DISTANCE CALLS. DR QUINTANA ARRIVED TO ROOM AND GAVE OREDERS FOR MELANIE. THIS NURSE LEFT ROOM TO OBATIN MEDICATION AND UPON ARRIVAL PT WAS SITTING ON BED WITH ANOTHER RN AND 2 SECURITY GUARDS IN HER ROOM. SHE WAS AGREEABLE TO THE INJECTION. PT IS NOW SITTING UP IN BED. SHE HAS HER CALL LIGHT IN REACH.
[2019-06-18 12:23] LABS: Free Thyroxine 0.57 ng/dL (0.70-1.60)
[2019-06-18 12:26] LABS: Thyroid Stimulating Hormone 20.7 uIU/mL (0.360-4.800)
--- NOTE | 2019-06-18 15:52 | NUR ---
SHIFT SUMMARY: PT HAS BEEN A/O TO HERSELF, SITUATION AND HER FAMILY TODAY. SHE CONTONUES TO BE EMOTIONALLY LABILE AND IMPULSIVE WITH POOR SAFETY AWARENESS. SHE HAS TO VOID CONSTANTLY AND HAS AN INSATIABLE APPETITE AND THIRST. SHE CRAVES SUGARARY DRINKS AND SNACKS. WE HAVE BEEN ENCOURAGING HER TO HAVE WATER OR COFFEE WITH HIGH PROTEIN SNACKS. AFTER HER EPISODE THIS MORNING SHE HAS NOT HAD ANOTHER OUTBURST. HER ABDOMEN REMAINS MODERATELY DISTENDED WITH TYMPANIC BOWEL TONES, DR QUINTANA WAS NOTIFIED. HER CBGS CONTINUE TO BE ELEVATED AND COVERED WITH INSULIN ORDERED. DR MCCONNELL MET WITH PT TODAY AND MADE SOME MEDICATION CHANGES REFLECTED ON HER OCT. PER DR MCCONNELL THE PT HAS A PSYCH HX. PT WAS COMPLIANT WITH HER NEW ORDER FOR SEROQUEL. PT SISTER AND FRIEND CAME TO VISIT TODAY BUT LEFT AFTER A SHORT TIME. PT CONTONUES TO BE INC VOIDING IN HER BRIEF STATING THAT SHE CANNOT WAIT UNTIL HELP ARRIVES TO HER ROOM. SHE USES BOTH HER CALL LIGHT AND YELLING OUT FOR HELP WHEN SHE NEEDS TO GO TO THE TOILET OR NEEDS MORE FOOD OR DRINK. SHE IS MOST DEFINATELY ABLE TO MAKE HER NEEDS KNOWN.
--- NOTE | 2019-06-18 16:14 | NUR ---
Spiritual Care initial note: Per admit trigger., I was tasked to speak to Elissa about advanced care planning. At time of visit, she was calm, but clearly confused. No family present. Pt unable to understand ACP questions at this time. No congregation beleifs. I will remain available to pt and family.
--- NOTE | 2019-06-19 00:48 | NUR ---
06/18/192149 PT'S BED ALARM ON AND PT STANDING BY WINDOW. REFUSED TO GO TO BED AND STATES SHE CANNOT SLEEP. C/O LEFT HIP PAIN BUT WOULD NOT LET RN CHECK IT. PULLING ON CURTAIN/BLINDS AND THROWING ITEMS ON HER TABLE ON FLOOR. PT STARTED PUSHING AT STAFF WHEN RN ATTEMPTED TO GUIDE HER TO HER BED. RN CALLED HEATER OPERATOR, ELÍAS AND SECURITY WHEN SHE BECAME VERBALLY ABUSIVE AND THREATENING TOWARDS STAFF. "I'LL PUNCH YOU!" WILL CALL ON-CALL MD FOR RESTRAINTS. VANESSA VEST AND NIKO WRISTS RESTRAINTS APPLIED.
--- NOTE | 2019-06-19 01:02 | NUR ---
06/18/19 2215 RN ATTEMPTED TO REACH ON-CALL MD AND LEFT MESSAGE TO RETURN CALL.
--- NOTE | 2019-06-19 01:03 | NUR ---
06/18/192320 ON-CALL MD RETURNED CALL AND RESERVATIONISTELÍAS SPOKE WITH HER ABOUT ABOVE EVENTS. INFORMED ABOUT PT'S COMPLAINTS. SEE NEW ORDERS. PT YELLING AND CURSING AT RANDOM. CONTINUAL VISUAL MONITORING OF PT IN EFFECT. BED ALARM ALSO ON.
[2019-06-19 05:09] LABS: BASOPHILS ABSOLUTE AUTO 0.02 K/mm3 (0.00-0.23); BASOPHILS PERCENT AUTO 0 % (0-2); EOSINOPHILS ABSOLUTE AUTO 0.04 K/mm3 (0.00-0.68); EOSINOPHILS PERCENT AUTO 1 % (0-6); Hematocrit 28.3 % (33.0-51.0); Hemoglobin 8.8 g/dL (11.5-16.0); IMMATURE GRAN ABSOLUTE AUTO 0.14 K/mm3 (0.00-0.10); IMMATURE GRAN PERCENT AUTO 2 % (0-1); LYMPHOCYTES ABSOLUTE AUTO 0.68 K/mm3 (0.84-5.20); LYMPHOCYTES PERCENT AUTO 8 % (21-46); MONOCYTES ABSOLUTE AUTO 1.04 K/mm3 (0.16-1.47); MONOCYTES PERCENT AUTO 13 % (4-13); Mean Corpuscular HGB 23.2 pg (26.0-34.0); Mean Corpuscular HGB Conc 31.1 g/dL (31.5-36.5); Mean Corpuscular Volume 75 fL (80-100); Mean Platelet Volume 9.8 fL (9.1-12.4); NEUTROPHILS ABSOLUTE AUTO 6.21 K/mm3 (1.96-9.15); NEUTROPHILS PERCENT AUTO 76 % (41-73); Platelet Count 119 K/mm3 (150-400); RDW Coefficient Variation 17.6 % (11.7-14.2); RDW Standard Deviation 47.7 fL (35.1-46.3); White Blood Cell Count 8.13 K/mm3 (4.00-11.30)
[2019-06-19 05:43] LABS: Anion Gap 7 mmol/L (6-16); Blood Urea Nitrogen 16 mg/dL (8-24); Bun/Creatinine Ratio 28.7 (12.0-20.0); CO2, Blood 22 mmol/L (21-32); Calcium, Blood 8.7 mg/dL (8.5-10.1); Chloride, Blood 107 mmol/L (98-108); Creatinine, Blood 0.56 mg/dL (0.40-1.00); Glomerular Filtration Rate >60 (60-); Glucose, Blood 107 mg/dL (70-99); Potassium, Blood 3.4 mmol/L (3.5-5.5); Sodium, Blood 136 mmol/L (136-145)
--- NOTE | 2019-06-19 15:07 | NUR ---
SHIFT SUMMARY PATIENT WAS REMOVED FROM RESTRAINTS THIS MORNING AT 0700. PATIENT HAS BEEN UP AMBULATING SELF ABOUT HER ROOM AND IN THE HALLWAY. SHE APPEARS STEADY ON HER FEET. ABLE TO MAKE HER NEEDS KNOWN. LANTUS CHANGED, SEE EMAR. FREQUENT SNACKS. COMPLAINTS OF DISCOMFORT TO THE BUTTOCKS, NO BRUISING NOTED. REPOSITIONING FOR DISCOMFORT FREQUENTLY.
--- NOTE | 2019-06-20 05:26 | NUR ---
SHIFT SUMMARY- NO ACUTE EVENTS OVERNIGHT. PT. A&OX3 HAS BEEN CALM, INDEPENDENT IN ROOM AND HALLWAY. SCHEDULED MEDS GIVEN AND PRN SEROQUEL. HR REMAINS IN THE 120'S. PT. IS ASYMPTOMATIC. RESTED WELL T/O THE NIGHT, NO APPARENT DISTRESS NOTED. CALL LIGHT WITHIN REACH AND SIDE RAILS UP X2. WILL CONT TO MONITOR.
[2019-06-20] MEDS ORDERED: QUET100 PO (11:43)
[2019-06-20] MEDS ORDERED: Humalog Mi100 UNIT/4 SC (11:45)
[2019-06-20] MEDS ORDERED: LEVSOD75 PO (11:46)
[2019-06-20] MEDS ORDERED: FERSU300 PO (11:47)
--- NOTE | 2019-06-20 12:18 | NUR ---
PT WAS DISCHARGED AT 1215, LEFT THE UNIT WITH FAMILY. PT STATED SHE WAS COMFORTABLE WALKING. REVIEWED DISCHARGE INSTRUCTIONS. FAXED MEDICATION LIST TO [facility].
== END 2019-06-20 12:21 | disposition home or self-care (01) | DRG 637 ==
LOC: ER 11:33 → ICUW 15:18 → ICUE 15:18 → MEDS 15:18 → ICUE 17:10 → MEDS 06-16 17:55
PROVIDERS: Emergency Medicine; Hospitalist; Nurse Practitioner Acute Care; Physician Assistant; ADMIT Internal Medicine
DX: E13.00 Other specified diabetes mellitus with hyperosmolarity without nonketotic hyperglycemic-hyperosmolar coma (NKHHC) (principal); G92 Toxic encephalopathy; E43 Unspecified severe protein-calorie malnutrition; E72.20 Disorder of urea cycle metabolism, unspecified; E87.1 Hypo-osmolality and hyponatremia; F33.3 Major depressive disorder, recurrent, severe with psychotic symptoms; Z68.1 Body mass index [BMI] 19.9 or less, adult; F29 Unspecified psychosis not due to a substance or known physiological condition; D63.8 Anemia in other chronic diseases classified elsewhere; D69.6 Thrombocytopenia, unspecified; E03.9 Hypothyroidism, unspecified; Z91.14 Patient's other noncompliance with medication regimen; F17.210 Nicotine dependence, cigarettes, uncomplicated; F19.10 Other psychoactive substance abuse, uncomplicated; F41.9 Anxiety disorder, unspecified; K74.60 Unspecified cirrhosis of liver; I77.6 Arteritis, unspecified; Z59.0 Homelessness
CPT/HCPCS: 0097U; 36415; 71046; 74176; 76705; 80047; 80048; 80053; 81001; 82010; 82140; 82607; 82728; 82746; 82947; 83540; 83550; 83690; 83735; 84100; 84439; 84443; 84484; 85014; 85025; 85027; 85651; 86140; 87077; 87081; 87086; 87186; 93005; 93010; 96360; 96361; 97162; 97166; 97530; 99285-25; A9270; C9113; G0480; J0696; J1630; J1650; J1815; J2060; J2765; J3480; J7030; J7042; J7120

== ENCOUNTER 2019-06-29 22:26 | Emergency (ER) | payer OTHER ==
[~2019-06-29] VITALS: Ht 165.1 cm; Wt 48.1 kg
[~2019-06-29 22:26] MED LIST changes: +ADMELOG100 UNIT/1 SC; +ALBU90OI INH; +Aldactone100 MG PO; +BASAGLAR K100 UNIT/1 SC; +FERSU300 PO; +GABA300 PO; +Humalog Mi100 UNIT/4 SC; +LEVSOD75 PO; +MIRT30ST PO; +QUET100 PO
[2019-06-29 22:55] LABS: BASOPHILS ABSOLUTE AUTO 0.03 K/mm3 (0.00-0.23); BASOPHILS PERCENT AUTO 0 % (0-2); EOSINOPHILS ABSOLUTE AUTO 0.13 K/mm3 (0.00-0.68); EOSINOPHILS PERCENT AUTO 1 % (0-6); Hematocrit 30.1 % (33.0-51.0); Hemoglobin 9.2 g/dL (11.5-16.0); IMMATURE GRAN ABSOLUTE AUTO 0.39 K/mm3 (0.00-0.10); IMMATURE GRAN PERCENT AUTO 4 % (0-1); LYMPHOCYTES ABSOLUTE AUTO 0.82 K/mm3 (0.84-5.20); LYMPHOCYTES PERCENT AUTO 8 % (21-46); MONOCYTES ABSOLUTE AUTO 0.77 K/mm3 (0.16-1.47); MONOCYTES PERCENT AUTO 8 % (4-13); Mean Corpuscular HGB 24.1 pg (26.0-34.0); Mean Corpuscular HGB Conc 30.6 g/dL (31.5-36.5); Mean Platelet Volume 9.6 fL (9.1-12.4); NEUTROPHILS ABSOLUTE AUTO 8.08 K/mm3 (1.96-9.15); NEUTROPHILS PERCENT AUTO 79 % (41-73); Platelet Count 238 K/mm3 (150-400); RDW Coefficient Variation 18.6 % (11.7-14.2); RDW Standard Deviation 50.6 fL (35.1-46.3); Red Blood Cell Count 3.81 M/mm3 (3.80-5.20); White Blood Cell Count 10.22 K/mm3 (4.00-11.30)
[2019-06-29 22:57] LABS: Mean Corpuscular Volume 79 fL (80-100)
[2019-06-29 23:12] LABS: Alanine Aminotransfer (ALT/SGP 47 U/L (12-78); Albumin, Blood 2.1 g/dL (3.4-5.0); Albumin/Globulin Ratio 0.4 (0.8-1.8); Alk Phos 318 U/L (50-136); Anion Gap 11 mmol/L (6-16); Aspartate Aminotrans (AST/SGOT 41 U/L (12-37); Bilirubin, Total 0.4 mg/dL (0.1-1.0); Blood Urea Nitrogen 9 mg/dL (8-24); Bun/Creatinine Ratio 14.2 (12.0-20.0); CO2, Blood 21 mmol/L (21-32); Calcium, Blood 8.6 mg/dL (8.5-10.1); Chloride, Blood 98 mmol/L (98-108); Creatinine, Blood 0.63 mg/dL (0.40-1.00); Globulin, Blood 5.4 g/dL (2.2-4.0); Glomerular Filtration Rate >60 (60-); Glucose, Blood 301 mg/dL (70-99); Potassium, Blood 2.9 mmol/L (3.5-5.5); Sodium, Blood 130 mmol/L (136-145); Total Protein, Blood 7.5 g/dL (6.4-8.2)
[2019-06-30] MEDS ORDERED: K-Dur20 MEQ PO (00:06)
== END 2019-06-30 00:40 | disposition home or self-care (01) ==
LOC: ER 22:26
PROVIDERS: Emergency Medicine
DX: R45.1 Restlessness and agitation (principal); R25.2 Cramp and spasm; E87.6 Hypokalemia; E11.9 Type 2 diabetes mellitus without complications; I10 Essential (primary) hypertension; E03.9 Hypothyroidism, unspecified; F41.9 Anxiety disorder, unspecified; F32.9 Major depressive disorder, single episode, unspecified; F17.200 Nicotine dependence, unspecified, uncomplicated; Z88.8 Allergy status to other drugs, medicaments and biological substances; Z79.899 Other long term (current) drug therapy; Z79.4 Long term (current) use of insulin
CPT/HCPCS: 36415; 80053; 83690; 85025; 96361; 96374; 99285-25; J1885; J7030

== ENCOUNTER 2019-07-09 23:44 | Observation (INO) | payer OTHER ==
[~2019-07-09] VITALS: Ht 167.6 cm; Wt 57.6 kg
[~2019-07-09 23:44] MED LIST changes: +K-Dur20 MEQ PO; +TRAM50 PO
[2019-07-10 00:08] LABS: BASOPHILS ABSOLUTE AUTO 0.03 K/mm3 (0.00-0.23); BASOPHILS PERCENT AUTO 1 % (0-2); EOSINOPHILS ABSOLUTE AUTO 0.08 K/mm3 (0.00-0.68); EOSINOPHILS PERCENT AUTO 2 % (0-6); Hemoglobin 8.1 g/dL (11.5-16.0); IMMATURE GRAN ABSOLUTE AUTO 0.33 K/mm3 (0.00-0.10); IMMATURE GRAN PERCENT AUTO 6 % (0-1); LYMPHOCYTES ABSOLUTE AUTO 0.43 K/mm3 (0.84-5.20); LYMPHOCYTES PERCENT AUTO 8 % (21-46); MONOCYTES ABSOLUTE AUTO 0.62 K/mm3 (0.16-1.47); MONOCYTES PERCENT AUTO 12 % (4-13); Mean Corpuscular HGB Conc 28.9 g/dL (31.5-36.5); Mean Platelet Volume 10.8 fL (9.1-12.4); NEUTROPHILS ABSOLUTE AUTO 3.71 K/mm3 (1.96-9.15); NEUTROPHILS PERCENT AUTO 71 % (41-73); Platelet Count 160 K/mm3 (150-400); RDW Coefficient Variation 22.1 % (11.7-14.2); RDW Standard Deviation 62.9 fL (35.1-46.3); Red Blood Cell Count 3.37 M/mm3 (3.80-5.20)
[2019-07-10 00:12] LABS: Mean Corpuscular Volume 83 fL (80-100)
[2019-07-10 00:23] LABS: Alanine Aminotransfer (ALT/SGP 39 U/L (12-78); Albumin, Blood 1.7 g/dL (3.4-5.0); Albumin/Globulin Ratio 0.3 (0.8-1.8); Alk Phos 381 U/L (50-136); Anion Gap 8 mmol/L (6-16); Aspartate Aminotrans (AST/SGOT 80 U/L (12-37); Bilirubin, Total 0.5 mg/dL (0.1-1.0); Blood Urea Nitrogen 16 mg/dL (8-24); Bun/Creatinine Ratio 25.1 (12.0-20.0); CO2, Blood 22 mmol/L (21-32); Calcium, Blood 7.9 mg/dL (8.5-10.1); Chloride, Blood 93 mmol/L (98-108); Creatinine, Blood 0.64 mg/dL (0.40-1.00); Globulin, Blood 5.3 g/dL (2.2-4.0); Glomerular Filtration Rate >60 (60-); Glucose, Blood 953 mg/dL (70-99); Potassium, Blood 5.7 mmol/L (3.5-5.5); Sodium, Blood 123 mmol/L (136-145)
[2019-07-10 00:27] LABS: BASOPHILS ABSOLUTE MAN 0.05 K/mm3 (0.00-0.23); BASOPHILS PERCENT MAN 1 % (0-2); EOSINOPHILS PERCENT MAN 0 % (0-6); LYMPHOCYTES ABSOLUTE MAN 0.31 K/mm3 (0.84-5.20); LYMPHOCYTES PERCENT MAN 6 % (21-46); METAMYELOCYTE ABSOLUTE MAN 0.05 K/mm3 (0.00-0.00); METAMYELOCYTE PERCENT MAN 1 % (0-0); MONOCYTES PERCENT MAN 4 % (4-13); MYELOCYTE ABSOLUTE MAN 0.05 K/mm3 (0.00-0.00); MYELOCYTE PERCENT MAN 1 % (0-0); NEUTROPHILS ABSOLUTE MAN 4.52 K/mm3 (1.96-9.15); SEG NEUTROPHILS PERCENT MAN 87 % (41-73); TOTAL CELLS COUNTED 100
[2019-07-10 00:47] LABS: Source, Urine Clean Catch
[2019-07-10 00:51] LABS: Bilirubin, Urine Neg (Neg); Blood, Urine Neg (Neg); Glucose Qualitative, Urine 4+ (Neg); Ketones, Urine Neg (Neg); Leukocyte Esterase, Urine Neg (Neg); Nitrite, Urine Neg (Neg); Protein, Urine 1+ (Neg); Specific Gravity, Urine 1.005 (1.003-1.022); Urobilinogen, Urine NORM (Normal)
[2019-07-10 00:58] LABS: Appearance, Urine Clear (Clear); Color, Urine Yellow (P-Yellow)
[2019-07-10 01:00] LABS: Osmolality, Serum 313 mos/KG (275-300)
[2019-07-10 01:12] LABS: Beta-hydroxybutyrate 1.3 mg/dL (0.2-2.8)
[2019-07-10 03:23] LABS: Glucose, Blood 573 mg/dL (70-99)
--- NOTE | 2019-07-10 03:49 | NUR ---
[place] of Care/Admission: Patient arrived to unit at 0238hr via stretcher, accompanied by ED nurse. Patient stood and transferred to bed without difficulty. Patient calm/comfortable upon arrival, but quickly became very restless, agitated, and calling out. Patient screaming "my legs", "I have to get up", "cramps". Very difficulty to re-direct or console patient, continues to scream/yell, and thrash in bed. During thrashing, IV to rt hand became dislodged, leaving no IV access. New IV's then placed to lt forearm, and rt upper arm. PRN fentanyl given, along with massage of lower extremities with good effect noted. Insulin gtt infusing at 6u/hr upon arrival with NS at 500ml/hr. Glucometer over 500 upon arrival, blood drawn with new IV start, and sent to lab, glucose of 523. Insulin gtt then decreased to 4u/hr. Will monitor glucose q1hr and titrate as indicated. VSS, O2-98% on RA. Will continue to monitor for pain, safety, comfort.
[2019-07-10 03:50] LABS: International Normalized Ratio 1.1; Prothrombin Time Results 11.6 Sec (9.7-11.5)
[2019-07-10 04:34] LABS: Anion Gap 9 mmol/L (6-16); Blood Urea Nitrogen 13 mg/dL (8-24); Bun/Creatinine Ratio 24.2 (12.0-20.0); CO2, Blood 22 mmol/L (21-32); Calcium, Blood 8.3 mg/dL (8.5-10.1); Chloride, Blood 99 mmol/L (98-108); Creatinine, Blood 0.54 mg/dL (0.40-1.00); Glomerular Filtration Rate >60 (60-); Glucose, Blood 455 mg/dL (70-99); Potassium, Blood 3.9 mmol/L (3.5-5.5); Sodium, Blood 130 mmol/L (136-145)
--- NOTE | 2019-07-10 06:40 | NUR ---
PT IN BED RESTING. HAS BEEN AGITATED THROUGHOUT THE NIGHT W/SOME YELLING. COMPLAINS ABOUT LEFT CALF PAIN R/T IT HAVING SPASMS. PAIN MEDS GIVEN WITH EFFECT. PT CURRENTLY ON 3 UNITS OF INSULIN/HR AND 100ML/HR OF NS. HAS LARGE HEMORRHOIDS. ABDOMINAL IS SIGNIFICANTLY DISTENDED W/PARACENTESIS ORDERED FOR 07/10. VOIDING CLEAR/YELLOW URINE - HAS BEEN USING BEDPAN. NARE/THROAT SWAB COLLECTED R/T PREVIOUS POSITIVE FOR MRSA. VITALS STABLE. WILL CONTINUE TO MONITOR. MARKEL ROLDAN
[2019-07-10 08:57] LABS: Anion Gap 8 mmol/L (6-16); Blood Urea Nitrogen 13 mg/dL (8-24); Bun/Creatinine Ratio 27.2 (12.0-20.0); CO2, Blood 23 mmol/L (21-32); Calcium, Blood 8.2 mg/dL (8.5-10.1); Chloride, Blood 101 mmol/L (98-108); Creatinine, Blood 0.48 mg/dL (0.40-1.00); Glomerular Filtration Rate >60 (60-); Glucose, Blood 338 mg/dL (70-99); Sodium, Blood 132 mmol/L (136-145)
--- NOTE | 2019-07-10 09:14 | NUR ---
PT IS NAPPING AND ABRUPTLY AWAKENS DEMANDING PAIN MEDS AND THEN BACK TO NAPPING. PT EXPALINED RE CHANGE IN MED STATUS. CBG NOTED AND INSULIN REMAINS AT 3 UNITS OF 819 CHECK. 0915 PT TO XRAY FOR PARACENTESIS VIA BED WITH TECH STATUS HAS CHANGED TO MEDICAL. INSTRUCTED TECH TO CALL IF IV NEEDING ATTENTION. VSS
--- NOTE | 2019-07-10 10:23 | NUR ---
PT TO XRAY PER PARACENTESIS AN BACK [phone]. PT VSS. RLQ BANDAID IS DRY. PT IS SLEEPING.
[2019-07-10 12:49] LABS: Anion Gap 6 mmol/L (6-16); Blood Urea Nitrogen 13 mg/dL (8-24); Bun/Creatinine Ratio 27.1 (12.0-20.0); CO2, Blood 24 mmol/L (21-32); Calcium, Blood 8.1 mg/dL (8.5-10.1); Chloride, Blood 102 mmol/L (98-108); Creatinine, Blood 0.48 mg/dL (0.40-1.00); Glomerular Filtration Rate >60 (60-); Glucose, Blood 236 mg/dL (70-99); Potassium, Blood 4.1 mmol/L (3.5-5.5); Sodium, Blood 132 mmol/L (136-145)
--- NOTE | 2019-07-10 12:59 | NUR ---
PT TAKING SMALL AMOUNT OF PO W/O NAUSEA. CBG NOTED. PT ALERT AND CALLING ON PHONE. HAS YELLED AT STAFF AND COACHED TO BE POLITE.
--- NOTE | 2019-07-10 14:01 | NUR ---
REPORT CALLED TO [facility] AND WILL TRANSPORT TO 358 VIA BED.
--- NOTE | 2019-07-10 16:30 | NUR ---
PT ARRIVED TO THE FLOOR AT 1500. PT ARRIVED BY WHEELCHAIR. PT TRANSFERED INDEPENDENTLY TO BED FROM WHEELCHAIR. PT ON ROOM AIR. BANDAGE OVER PARACENTESIS SITE C/D/I. PT ALERT AND ORIENTED.
--- NOTE | 2019-07-10 18:46 | NUR ---
PT ARRIVED TO THE UNIT THIS AFTERNOON ABOUT 3 PM. PT ALERT AND ORIENTED. PT REQUESTED MULTIPLE SUGARY ITEMS TO EAT THIS AFTERNOON. PT REMINDED THAT SHE WAS DIABETIC AND ENCOURAGED TO EAT LOW SUGAR FOODS. PT CALLS OUT FOR HELP OFTEN, INSTEAD OF USING HER CALL LIGHT. PT UP IN BED WATCHING TELEVISION.
--- NOTE | 2019-07-10 18:52 | NUR ---
Per admit trigger, I was tasked with presenting the benefits and purpose of advanced care planning to Hollie. She is confused, restless, and anxious. Clearly, she is unable to grasp such complicated and important concepts/decisions regarding POLST/AD. No family present. I have notified RN to let me know when family is present and I will present this information to them. I will remain available.
--- NOTE | 2019-07-11 03:23 | NUR ---
Has been awake at intervals, calling out for assistance with ADLs. However, when staff isnt as quick to get to her as she wants, able to do said ADLs without apparent difficulties. Will continue to encourage pt to be more independent to better enable her for discharge. ADA dietary restrictions encouraged. Received analgesic x 1, med effective. Resting quietly at this time. Call light in reach. Isolation precautions maintained.
[2019-07-11 05:09] LABS: BASOPHILS ABSOLUTE AUTO 0.05 K/mm3 (0.00-0.23); BASOPHILS PERCENT AUTO 1 % (0-2); EOSINOPHILS ABSOLUTE AUTO 0.17 K/mm3 (0.00-0.68); EOSINOPHILS PERCENT AUTO 2 % (0-6); Hematocrit 28.8 % (33.0-51.0); Hemoglobin 8.8 g/dL (11.5-16.0); IMMATURE GRAN ABSOLUTE AUTO 0.52 K/mm3 (0.00-0.10); IMMATURE GRAN PERCENT AUTO 6 % (0-1); LYMPHOCYTES ABSOLUTE AUTO 0.85 K/mm3 (0.84-5.20); LYMPHOCYTES PERCENT AUTO 10 % (21-46); MONOCYTES ABSOLUTE AUTO 1.02 K/mm3 (0.16-1.47); MONOCYTES PERCENT AUTO 12 % (4-13); Mean Corpuscular HGB 23.3 pg (26.0-34.0); Mean Corpuscular HGB Conc 30.6 g/dL (31.5-36.5); Mean Platelet Volume 9.5 fL (9.1-12.4); NEUTROPHILS ABSOLUTE AUTO 5.76 K/mm3 (1.96-9.15); NEUTROPHILS PERCENT AUTO 69 % (41-73); Platelet Count 151 K/mm3 (150-400); RDW Coefficient Variation 21.1 % (11.7-14.2); RDW Standard Deviation 53.3 fL (35.1-46.3); Red Blood Cell Count 3.77 M/mm3 (3.80-5.20); White Blood Cell Count 8.37 K/mm3 (4.00-11.30)
[2019-07-11 05:29] LABS: Anion Gap 7 mmol/L (6-16); Blood Urea Nitrogen 15 mg/dL (8-24); Bun/Creatinine Ratio 26.4 (12.0-20.0); CO2, Blood 26 mmol/L (21-32); Chloride, Blood 99 mmol/L (98-108); Creatinine, Blood 0.57 mg/dL (0.40-1.00); Glomerular Filtration Rate >60 (60-); Glucose, Blood 275 mg/dL (70-99); Magnesium, Blood 1.4 mg/dL (1.6-2.4); Sodium, Blood 132 mmol/L (136-145)
[2019-07-11 05:42] LABS: Mean Corpuscular Volume 76 fL (80-100)
[2019-07-11] MEDS ORDERED: FURO40 PO (11:26)
[2019-07-11] MEDS ORDERED: Aldactone100 MG PO (11:27)
--- NOTE | 2019-07-11 12:40 | NUR ---
PT'S BLOOD GLUCOSE WAS 468 AT 1149. ADMINISTERED 12 UNITS OF HUMOLOG PER EMAR AND CALLED DR. WATTS. DR. ROWE ORDERED RECHECK OF BLOOD GLUCOSE 1 HOUR AFTER INSULIN ADMINISTRATION.
--- NOTE | 2019-07-11 15:47 | NUR ---
PT DISCHARGED TO HOME. PT A/O THROUGHOUT THIS SHIFT. PT HAS BEEN INDEPENDENT IN THE ROOM THROUGHOUT THIS SHIFT. PT HAS AMBULATED IN THE HALLS MULTIPLE TIMES DURING THIS SHIFT. PT PROVIDED TRANSPORTATION HOME VIA [facility]. PT TO [facility] WITH BELONGINGS. IV'S REMOVED PRIOR TO DISCHARGE. PT STATES NO ADDITIONAL NEEDS BEFORE DISCHARGE. PT AMBULATED INDEPENDENTLY OFF FLOOR ACCOMPANIED BY SAMRA LARA.
== END 2019-07-11 15:55 | disposition home or self-care (01) ==
LOC: ER 23:44 → ICUW 23:45 → ER 07-10 01:34 → ICUW 07-10 02:25 → MEDS 07-10 15:00 → ENPENDDIS 07-11 11:15 → MEDS 07-11 15:55
PROVIDERS: Emergency Medicine; Hospitalist; ADMIT Family Medicine
PROC: 0W9G3ZZ Drainage of Peritoneal Cavity, Percutaneous Approach (ICD-10-PCS; principal; 2019-07-10)
DX: K74.60 Unspecified cirrhosis of liver (principal); R18.8 Other ascites; E11.00 Type 2 diabetes mellitus with hyperosmolarity without nonketotic hyperglycemic-hyperosmolar coma (NKHHC); B19.20 Unspecified viral hepatitis C without hepatic coma; D64.9 Anemia, unspecified; E03.9 Hypothyroidism, unspecified; F32.9 Major depressive disorder, single episode, unspecified; F41.9 Anxiety disorder, unspecified; G89.29 Other chronic pain; F19.10 Other psychoactive substance abuse, uncomplicated; F17.210 Nicotine dependence, cigarettes, uncomplicated; E87.5 Hyperkalemia; Z88.8 Allergy status to other drugs, medicaments and biological substances; Z91.041 Radiographic dye allergy status; Z79.4 Long term (current) use of insulin; Z79.899 Other long term (current) drug therapy; Z91.19 Patient's noncompliance with other medical treatment and regimen; Z76.5 Malingerer [conscious simulation]; Z90.49 Acquired absence of other specified parts of digestive tract
CPT/HCPCS: 36415; 49083; 80048; 80053; 82010; 82947; 83036; 83690; 83735; 83930; 85025; 85610; 85730; 87081; 90686; 93005; 93010; 96361; 96374; 96375; 99285; G0378; J1815; J2405; J3010; J7030